=== PATIENT | female | born 1995 | race Caucasian/White ===

== ENCOUNTER → 2018-10-23 | Outpatient (CLI) | payer BC | END | disposition home or self-care (01) | LOC: RAD 12:20 | PROVIDERS: ATTEND Family Medicine | DX: I50.9 Heart failure, unspecified (principal) | CPT/HCPCS: 71046 ==

== ENCOUNTER 2020-05-09 13:22 | Emergency (ER) | payer BC, OTHER ==
[~2020-05-09] VITALS: Ht 167.6 cm; Wt 147.2 kg
[2020-05-09 13:25] VITALS: BP 127/81
[2020-05-09] MEDS ORDERED: LIDOCAINE 1%-EPI 1:100K, 20ML ONE (13:53)
[2020-05-09] MEDS ORDERED: DIPH,PERTUSS(ACELL),TET VAC/PF 0.5 ML IM-VACC ONE ×2 (13:53→14:00)
[2020-05-09] MEDS ORDERED: LIDOCAINE 1%-EPI 1:100K, 20ML SQ ONE (14:00)
--- NOTE | 2020-05-09 14:27 | NUR ---
tdap per mar xr neg awaiting sutures. as
--- NOTE | 2020-05-09 14:51 | NUR ---
SUTURE COMPLETED BY EDPA, PT TOLERATED WELL. WOUND DRESSED. PT GIVEN DC INSTRUCTIONS. AMBULATORY TO DC DESK WITH STEDY GAIT. ALL QUESTIONS ANSWERED.
== END 2020-05-09 14:51 | disposition home or self-care (01) ==
LOC: ED 13:41
DX: S51.812A Laceration without foreign body of left forearm, initial encounter (principal); S93.492A Sprain of other ligament of left ankle, initial encounter; W18.30XA Fall on same level, unspecified, initial encounter; Y93.89 Activity, other specified; Y92.69 Other specified industrial and construction area as the place of occurrence of the external cause; Y99.8 Other external cause status
CPT/HCPCS: 12031; 90471; 90715; 99284